=== PATIENT | female | born 1985 | race African-American/Black ===

== ENCOUNTER 2017-01-20 06:12 | Emergency (ER) | payer MEDICAID, OTHER ==
[~2017-01-20] VITALS: Ht 170.2 cm; Wt 83.0 kg
[2017-01-20 06:39] VITALS: BP 127/83
[2017-01-20 07:04] LABS: Urine Bilirubin Negative (Negative); Urine Color Yellow (Yellow); Urine Glucose Normal (Normal); Urine Ketone Negative (Negative); Urine Nitrite Negative (Negative); Urine RBC 14 /hpf (0 - 4); Urine Squamous Epithelial Cell FEW /hpf (<5)
[2017-01-20 07:15] LABS: Urine Blood 1+ /uL (Negative)
== END 2017-01-20 09:19 | disposition home or self-care (01) ==
LOC: ER 06:18
DX: K29.00 Acute gastritis without bleeding (principal)
CPT/HCPCS: 81001; 81025

== ENCOUNTER 2017-12-20 19:08 | Emergency (ER) | payer MEDICAID, OTHER ==
[~2017-12-20] VITALS: Ht 170.2 cm; Wt 72.6 kg
[2017-12-20 19:15] VITALS: BP 126/64
[2017-12-20 19:52] LABS: Basophils # (auto) 0.1 uL; Basophils % (auto) 1.1 % (0.0-2.0); Eosinophils # (auto) 0.3 uL; Eosinophils % (auto) 4.9 % (0.0-7.0); Hematocrit 43.3 % (36.0-46.0); Hemoglobin 15.3 g/dL (12.2-16.2); Lymphocytes # (auto) 2.7 uL; Lymphocytes % (auto) 48.7 % (10.0-50.0); Mean Corpuscular Hgb Conc. 35.3 g/dL (32.0-36.0); Mean Corpuscular Volume 90.6 fL (80.0-100.0); Monocytes # (auto) 0.5 uL; Monocytes % (auto) 8.6 % (0.0-12.0); Neutrophils # (auto) 2.1 uL; Neutrophils % (auto) 36.7 % (37.0-80.0); Nucleated Red Blood Cells % 0.6 %; Platelet Count (auto) 290 10^3/uL (140-450); Red Blood Cells 4.78 10^6/uL (4.0-5.20); Red Cell Distribution Width 13.4 % (11.8-14.3); White Blood Cell 5.6 10^3/uL (4.4-10.8)
[2017-12-20 20:16] LABS: INR 0.98 (0.9-1.15); Partial Thromboplastin Time 26.8 sec (22.64-33.71); Prothrombin Time 10.7 sec (9.37-12.3)
[2017-12-20 20:25] LABS: Albumin 3.4 g/dL (3.4-5.0); Alkaline Phosphatase 71 U/L (45-117); Anion Gap 6 (5-15); Bilirubin, Total 0.3 mg/dL (0.2-1.0); Calcium 8.4 mg/dL (8.5-10.1); Carbon Dioxide 23 mmol/L (21-32); Chloride 109 mmol/L (98-107); GFR African American 75 mL/min; GFR Non-African American 62 mL/min; Sodium 138 mmol/L (136-145)
[2017-12-20 21:24] LABS: Potassium 4.3 mmol/L (3.5-5.1)
[2017-12-20 21:27] LABS: Glucose 100 mg/dL (74-106)
[2017-12-20 21:30] LABS: Blood Urea Nitrogen 16 mg/dL (7-18)
[2017-12-20 21:31] LABS: Aspartate Aminotransferase 40 U/L (15-37)
[2017-12-20 21:32] LABS: Alanine Aminotransferase 40 U/L (13-56); Total Protein 6.8 g/dL (6.4-8.2)
== END 2017-12-21 00:36 | disposition left against medical advice (07) ==
LOC: EDUNIT# 19:08 → ER 19:08 → EDBD 19:08 → ER 12-21 00:36
DX: R07.9 Chest pain, unspecified (principal); F41.9 Anxiety disorder, unspecified; Z53.21 Procedure and treatment not carried out due to patient leaving prior to being seen by health care provider
CPT/HCPCS: 36415; 71045; 80053; 83735; 84484; 84702; 85025; 85610; 85730; 93005